=== PATIENT | female | born 1965 | race Caucasian/White ===

== ENCOUNTER 2016-09-06 17:59 | Emergency (ER) | payer MEDICAID ==
[~2016-09-06] VITALS: Ht 165.1 cm; Wt 85.0 kg
[2016-09-06 19:38] VITALS: BP 138/76
== END 2016-09-06 19:59 | disposition home or self-care (01) ==
LOC: ER 18:11
DX: I83.892 Varicose veins of left lower extremity with other complications (principal); I10 Essential (primary) hypertension
CPT/HCPCS: 99283